=== PATIENT | male | born 1995 | race Caucasian/White ===

== ENCOUNTER 2018-06-22 00:47 | Inpatient (IN) ==
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
[2018-06-22] MEDS ORDERED: Morphine Sulfate Inj 8 MG/ML Vial IV.PUSH ONE (01:44)
[2018-06-22] MEDS ORDERED: Sod Chloride 0.9% Inj 1,000 ML IV.CONT SCH (01:45)
[2018-06-22] MEDS ORDERED: HYDROmorphone PF Inj 1 MG/ML Ampul IV.PUSH PRN (02:08)
[2018-06-22] MEDS ORDERED: Morphine Inj 4 MG/ML Vial IV.PUSH ONE (02:12)
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
[2018-06-22] MEDS ORDERED: Gentamicin/NS 80 mg Premix 100 ML IV.SIG ONE (02:34)
[2018-06-22] MEDS ORDERED: Chlorhexidine Gluconate 2% 1 Pack (2 Cloths) TOPICAL SCH (04:00)
[2018-06-22] MEDS ORDERED: Chlorhexidine Gluconate 2% 1 Pack (2 Cloths) TOPICAL PRN (04:00)
[2018-06-22] MEDS ORDERED: Metoprolol Tartrate 25 MG Tablet PO ONE (04:06)
[2018-06-22] MEDS ORDERED: Chlorhexidine Gluconate 2% 1 Pack (2 Cloths) TOPICAL ONE (04:06)
[2018-06-22] MEDS: HYDROmorphone PF Inj 2 MG/ML Vial IV.PUSH PRN ×2 (04:36→08:09)
[2018-06-22] MEDS: ceFAZolin 2 GM Premix Inj 2 GM/50 ML PIGGYBACK IV.SIG SCH ×2 (04:36→18:25)
[2018-06-22] MEDS ORDERED: Sodium Chlor 0.9% Inj 500 ML IV.SIG SCH (05:00)
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
[2018-06-22] MEDS: Docusate Sodium 100 MG Capsule PO SCH ×2 (08:07→20:07)
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
[2018-06-22] MEDS ORDERED: Ketamine Inj 50 MG/5 ML Syringe IV.PUSH ONE (10:07)
[2018-06-22] MEDS ORDERED: Ketorolac Inj 30 MG/ML (IVP) Vial IV.PUSH ONE (10:30)
[2018-06-22] MEDS ORDERED: Lidocaine PF 1% Inj 5 ML Syringe OTHER ONE (10:30)
[2018-06-22] MEDS ORDERED: Tobramycin Sulfate 1,200 MG Vial (for ortho/sterile core) OTHER ONE (11:49)
[2018-06-22] MEDS ORDERED: fentaNYL Citrate Inj 100 MCG/2 ML Ampul ONE (12:43)
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
[2018-06-22] MEDS ORDERED: *Labetalol HCl Inj 100 MG/20 ML Vial PERIprocedural Use ONLY IV.PUSH ONE (13:31)
[2018-06-22] MEDS ORDERED: *Enalaprilat Inj 1.25 MG/ML Vial IV.PUSH ONE (13:36)
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
--- NOTE | 2018-06-22 15:49 | OTSOAPIP ---
TIME SESSION COMPLETED: AM TREATMENT TIME: 0 MINS. CHART REVIEWED. ATTEMPTED TO SEE AND PATIENT OFF FLOOR FOR SURGERY. WILL FOLLOW NEXT DAY. Therapist: Josselin Ponce Signature on file
[2018-06-22] MEDS: Gentamicin/NS 80 mg Premix 100 ML IV.SIG SCH (20:07)
[2018-06-23] MEDS: Gentamicin/NS 80 mg Premix 100 ML IV.SIG SCH ×3 (05:02→21:03)
[2018-06-23 05:04] LABS: Baso % (Auto) 0.2 % (0.0-2.0); Hematocrit 39.5 % (39.0-51.0); Hemoglobin 13.6 gm/dL (13.0-17.0); Lymph # (Auto) 1.3 th/mm3 (1.0-4.8); Mean Corpuscular HGB Conc 34.4 % (32.0-36.0); Mean Corpuscular Hemoglobin 29.7 pg (27.0-34.0); Mean Corpuscular Volume 86.2 fL (80.0-100.0); Mono % (Auto) 9.4 % (0.0-8.0); Neut # (Auto) 8.2 th/mm3 (1.8-7.7); Neut % (Auto) 78.4 % (16.0-70.0); Platelet Count 140 th/mm3 (150-450); Red Blood Count 4.59 mil/mm3 (4.50-5.90); Red Cell Distribution Width 12.8 % (11.6-17.2); White Blood Count 10.4 th/mm3 (4.0-11.0)
[2018-06-23 05:22] LABS: Anion Gap 6 meq/L (5-15); Blood Urea Nitrogen 12 mg/dL (7-18); Calcium 8.6 mg/dL (8.5-10.1); Carbon Dioxide 26.9 meq/L (21.0-32.0); Chloride 105 meq/L (98-107); Glomerular Filtration Rate Greater Than 89 mL/min (>89); Glucose,Random 126 mg/dL (74-106); Potassium 4.6 meq/L (3.5-5.1); Sodium 138 meq/L (136-145)
[2018-06-23] MEDS: Docusate Sodium 100 MG Capsule PO SCH ×2 (08:19→21:02)
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
[2018-06-24] MEDS: Gentamicin/NS 80 mg Premix 100 ML IV.SIG SCH ×2 (04:09→11:50)
[2018-06-24] MEDS: Docusate Sodium 100 MG Capsule PO SCH (08:59)
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
[2018-06-24 13:24] VITALS: BP 129/72; PULSE 74; RESP 16; TEMP 98.8; O2SAT 99
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
== END 2018-06-24 15:20 | disposition home or self-care (01) ==
LOC: NEPC 00:47 → NEDA 02:11 → N06 03:36
PROVIDERS: ADMIT Surgery Trauma Surgery; ATTEND Surgery Trauma Surgery